=== PATIENT | female | born 1965 | race Caucasian/White ===

== ENCOUNTER 2023-05-22 07:40 | Emergency (ER) | payer BC ==
[~2023-05-22] VITALS: Ht 170.2 cm; Wt 68.2 kg
[~2023-05-22 07:40] MED LIST: ATIVAN 1MG T1 MG/TAB PO; BENTYL 10MG10 MG/CAP PO; DOXYCYCLINE 10100 MG PO; EFFEXOR-XR150 MG PO; ESTRACE 1MG1 MG/TAB PO; ESTRACE0.5 MG PO; LAMICTAL 100MG100 MG PO; LIPITOR 10MG10 MG PO; METHADONE H10 MG/TAB PO; NEURONTIN300 MG/CAP; NUVIGIL150 MG; OMNICEF 300MG300 MG PO; REMERON 15M15 MG/TA1 PO; REQUIP 1MG T1 MG/TAB PO; RESTORIL30 MG; SEROQUEL 1100 MG/TAB PO; SEROQUEL300 MG; SEROQUEL50 MG PO; VISTARIL50 MG PO
[2023-05-22 07:47] VITALS: TEMP 97.6
[2023-05-22] MEDS ORDERED: QUEtiapine 25 MG TAB PO ONE (08:15)
[2023-05-22] MEDS ORDERED: Gabapentin 300 MG CAP PO ONE (08:15)
[2023-05-22] MEDS ORDERED: LORazepam 2 MG/ML 1 ML VIAL IV ONE (08:15)
[2023-05-22] MEDS ORDERED: Nicotine 14 MG DAILY PATCH TD ONE (10:15)
[2023-05-22 12:20] VITALS: BP 142/90; PULSE 94
--- NOTE | 2023-05-22 13:55 | NUR ---
Press Reader was consulted in ED for patient that came in from the [facility]. Patient was recently admitted here and was discharged on 05/20/23 to [facility]. SW was contacted as patient was never able to get her medications, resulting in her returning to the ED. KAREEN contacted Poornima, Therapist at [facility] who advised patient's medications were sent to [facility] in [place] and family was not able to bring them into town as they reported patient's PCP, Dr. Franz wanted to stop most of her medications. What SW was told was that this was due to reason for patient admission, which was an overdose. Poornima advised patient can return to the [facility] once it is determined what the plan is for her medications. KAREEN then contacted patient's daughter, Tana (ph#[phone]) who was with patient's , Dre (ph#[phone]). Tana advised they actually had been in contact with [facility] in [place] and that they were able to accept patient today as soon as they can do a phone interview with patient. KAREEN contacted Tiffany with admissions at [facility] and facilitated a conversation between her and patient. Before handing the phone to patient, KAREEN asked Tiffany if they had a bed available today and Tiffany stated yes. Tiffany also requested records on patient, which KAREEN faxed. After this phone call, KAREEN met with patient who expressed frustration that she had to wait here instead of [facility] for her family to pick her up. Patient is agreeable to go to [facility] today, but wants to get her belongings. KAREEN coordinated with patient's family and the CSU about patient's belongings. Family will take her by the CSU on the way out of town on the way to [facility]. KAREEN updated RN on the above plan. KAREEN received a phone call back from Dr. Franz, patient's PCP in [place]. Dr. Franz expressed frustration with lack of communication with the hospital following patient's discharge. Dr. Franz stated that he took phone calls from the family asking for refills of medication and he was unaware of where patient was discharged to and what was done with her medications during hospitalization. KAREEN followed up with Tiffany at [facility] who then placed KAREEN on the phone with her supervisor quilting, Maya. Maya advised they wouldn't be able to accept KAREEN's "referral" and feel patient needs to go somewhere like [facility] to stabilize her medications prior to admitting there. KAREEN advised she was not aware of this and that patient was in route. KAREEN advised family had reported they made arrangements and that all SW needed to do was facilitate the phone interview. KAREEN advised family was under the impression they could accept today. KAREEN contacted patient's daughter, Tana who just got off the phone with [facility]. Tana stated they are taking patient to [facility] in [place], per recommendation from [facility]. Tana stated she was told after a few days there, patient could discharge to [facility]. KAREEN contacted Tiffany at [facility] and confirmed [facility] does walk in screenings. KAREEN contacted [facility] and left a message in an attempt to provide the above update.
== END 2023-05-22 12:20 | disposition home or self-care (01) ==
LOC: COL.ER 07:40
DX: F41.9 Anxiety disorder, unspecified (principal); Z79.899 Other long term (current) drug therapy
CPT/HCPCS: J2060